=== PATIENT | female | born 1950 | race Caucasian/White ===

== ENCOUNTER → 2019-06-10 | Outpatient (CLI) | payer BC ==
--- NOTE | 2019-06-10 16:17 | XR ---
EXAMINATION TYPE: XR lumbosacral spine min 4V DATE OF EXAM: 06/10/2019 CLINICAL HISTORY: pain COMPARISON: NONE TECHNIQUE: Frontal, lateral, and oblique images of the lumbar spine are obtained. FINDINGS: Moderate degenerative disc space narrowing L4-5 and L5-S1. Grade 1 anterolisthesis L4 and L 5 measuring 6 mm. No fracture identified. IMPRESSION: No acute fracture or dislocation is seen in the lumbar spine. .ICD 10 NO FRACTURE, INITIAL EVALUATION
== END | disposition home or self-care (01) ==
LOC: RADXRYALE 15:32
PROVIDERS: ATTEND Physician Assistant Medical
DX: M54.31 Sciatica, right side (principal)
CPT/HCPCS: 72110

== ENCOUNTER → 2021-06-27 | Outpatient (CLI) | payer BC ==
--- NOTE | 2021-06-27 11:27 | BD ---
EXAMINATION TYPE: Axial Bone Density DATE OF EXAM: 06/27/2021 COMPARISON: NONE CLINICAL HISTORY: Height: 62 IN Weight: 184 LBS FRAX RISK QUESTIONS: Family History (Parent hip fracture): YES History of Fracture in Adulthood: PATELLA FX AGE 65; TIBIA PLATEAU FX AGE 64; LT WRIST FX AGE 55; RT WRIST AGE 70 RISK FACTORS HISTORY OF: History of Wrist Fracture: YES LT WRIST AGE 55; RT WRIST AGE 70 Surgery to Wrist (right): YES AGE 70 Active: YES Diet low in dairy products/other sources of calcium: YES Postmenopausal woman: AGE 56 MEDICATIONS: Additional Medications: CALCIUM, VIT D, LIPITOR, AMLODIPINE EXAM MEASUREMENTS: Bone mineral densitometry was performed using the [employer] System. Bone mineral density as measured about the Lumbar spine is: ----- L1-L4(G/cm2): 1.069 T Score Values are as follows: ----- L2: -1.3 ----- L3: -0.9 ----- L4: 0.3 ----- L1-L4: -0.9 Bone mineral density BASELINE Bone mineral density about the R hip (g/cm2): 0.914 Bone mineral density about the L hip (g/cm2): 0.812 T Score values are as follows: -----R Neck: -0.9 -----L Neck: -1.6 -----R Total: -0.5 -----L Total: -0.7 Bone mineral density BASELINE IMPRESSION: No evidence for osteoporosis or osteopenia. NOTE: T-SCORE=SD OF THE YOUNG ADULT MEAN.
== END | disposition home or self-care (01) ==
LOC: RADBDWWP 07:15
PROVIDERS: ATTEND Family Medicine
DX: M85.89 Other specified disorders of bone density and structure, multiple sites (principal); E55.9 Vitamin D deficiency, unspecified; Z78.0 Asymptomatic menopausal state
CPT/HCPCS: 77080

== ENCOUNTER → 2021-07-11 | Outpatient (CLI) | payer BC ==
--- NOTE | 2021-07-12 12:26 | MM ---
Reason for exam: screening (asymptomatic). History: Patient is postmenopausal and had first child at age 35. Benign excisional biopsy of the left breast. Physical Findings: A clinical breast exam by your physician is recommended on an annual basis and results should be correlated with mammographic findings. MG 3D Screening Mammo W/Cad Bilateral CC and MLO view(s) were taken. No prior studies available for comparison. There are scattered fibroglandular densities. There is no discrete abnormality. ASSESSMENT: Benign, BI-RAD 2 RECOMMENDATION: Routine screening mammogram of both breasts in 1 year.
== END | disposition home or self-care (01) ==
LOC: RADMAMWWP 16:36
PROVIDERS: ATTEND Family Medicine
DX: Z12.31 Encounter for screening mammogram for malignant neoplasm of breast (principal); Z78.0 Asymptomatic menopausal state
CPT/HCPCS: 77063; 77067

== ENCOUNTER → 2024-05-21 | Outpatient (CLI) | payer BC ==
--- NOTE | 2024-05-22 14:19 | MM ---
Reason for Exam: Screening (asymptomatic). Last mammogram was performed 2 year(s) and 10 month(s) ago. Patient History: Menarche at age 14. First Full-Term at age 35. Late child-bearing (after 30). Postmenopausal. Benign Excisional Biopsy on the left side. Risk Values: Padmini 5 year model risk: 2.9%. NCI Lifetime model risk: 7.4%. Prior Study Comparison: 07/11/2021 Bilateral Screening Mammogram, [facility]. Tissue Density: There are scattered areas of fibroglandular density. Findings: Analyzed By CAD. Similar postexcisional changes left upper outer quadrant. Global asymmetry lateral subareolar left breast is unchanged. There is no suspicious group of microcalcifications or new suspicious mass in either breast. Overall Assessment: Benign, BI-RAD 2 Management: Screening Mammogram of both breasts in 1 year. . Patient should continue monthly self-breast exams. A clinical breast exam by your physician is recommended on an annual basis. This exam should not preclude additional follow-up of suspicious palpable abnormalities. Note on Padmini scores and lifetime risk: 1. A Padmini score greater than 3% is considered moderate risk. If this is the case, consider specialist referral to assess eligibility for a risk reducing agent. 2. If overall lifetime risk for the development of breast cancer is 20% or higher, the patient may qualify for future screening with alternating mammogram and breast MRI. [facility], , 05/22/2024 2:16 PM. Electronically signed and approved by: Mi Slater M.D. Radiologist
== END | disposition home or self-care (01) ==
LOC: RADMAMWWP 13:51
PROVIDERS: ATTEND Family Medicine
CPT/HCPCS: 77063; 77067

== ENCOUNTER 2024-06-25 11:06 | Observation (INO) | payer BC, MEDICARE ==
[2024-06-25] MEDS: LIDOCAINE 4% PATCH TOPICAL ONE (11:40)
--- NOTE | 2024-06-25 11:41 | ED ---
General Adult HPI - General Chief complaint: Back Pain/Injury Stated complaint: sciatica Time Seen by Provider: 06/25/24 11:14 Source: patient, EMS, RN notes reviewed Mode of arrival: EMS Limitations: no limitations - History of Present Illness Initial comments: 74-year-old female presents to the emergency department for evaluation of low back pain. Patient reports low back pain radiating down her right leg. She states it started on Sunday. Patient reports that she has a history of sciatica but states that the pain is more severe than in the past. She states that she was seen by her PCP on Sunday for the same symptoms. She was started on steroids and was provided a dose of IM steroids and anti-inflammatories. She states that she has not seen any improvement in her symptoms. She denies recent fever, chills, saddle anesthesia, loss of bowel or bladder function. - Related Data Home Medications Medication Instructions Recorded Confirmed Atorvastatin [Lipitor] 20 mg PO HS 06/25/24 06/25/24 amLODIPine [Norvasc] 5 mg PO DAILY 06/25/24 06/25/24 methylPREDNISolone Dose Pack 4 mg PO DIRECTED 06/25/24 06/25/24 [Medrol Dose Pack] Previous Rx's Medication Instructions Recorded Acetaminophen Tab [Tylenol] 650 mg PO Q6HR PRN tab 06/27/24 Gabapentin [Neurontin] 300 mg PO TID #90 cap 06/27/24 Allergies Allergy/AdvReac Type Severity Reaction Status Date / Time Penicillins Allergy Rash/Hives Verified 06/25/24 16:43 Review of Systems ROS Statement: Those systems with pertinent positive or pertinent negative responses have been documented in the HPI. ROS Other: All systems not noted in ROS Statement are negative. Past Medical History Past Medical History: Hyperlipidemia, Hypertension Additional Past Medical History / Comment(s): diverticulosis History of Any Multi-Drug Resistant Organisms: None Reported Past Surgical History: Section, Tonsillectomy, Tubal Ligation Additional Past Surgical History / Comment(s): LEFT WRIST Past Anesthesia/Blood Transfusion Reactions: Motion Sickness, Postoperative Nausea & Vomiting (PONV) Past Psychological History: No Psychological Hx Reported Smoking Status: Former smoker Past Alcohol Use History: Occasional Past Drug Use History: None Reported - Past Family History Mother Family Medical History: No Reported History General Exam Limitations: no limitations General appearance: alert, in no apparent distress Head exam: Present: atraumatic, normocephalic, normal inspection Eye exam: Present: normal appearance, PERRL, EOMI. Absent: scleral icterus, conjunctival injection, periorbital swelling ENT exam: Present: normal exam, mucous membranes moist Respiratory exam: Present: normal lung sounds bilaterally. Absent: respiratory distress, wheezes, rales, rhonchi, stridor Cardiovascular Exam: Present: regular rate, normal rhythm, normal heart sounds. Absent: systolic murmur, diastolic murmur, rubs, gallop, clicks Extremities exam: Present: normal inspection, full ROM, normal capillary refill, other (DP and PT pulses 2+). Absent: tenderness, pedal edema, joint swelling, calf tenderness Back exam: Present: full ROM, tenderness Neurological exam: Present: alert, oriented X3 Psychiatric exam: Present: normal affect, normal mood Skin exam: Present: warm, dry, intact, normal color. Absent: rash Course Vital Signs 06/25/24 06/25/24 06/25/24 11:19 13:14 17:00 Temperature 99.2 F 98.2 F 98.2 F Pulse Rate 74 66 68 Respiratory 16 18 18 Rate Blood Pressure 193/72 137/74 131/76 O2 Sat by Pulse 96 97 97 Oximetry Medical Decision Making - Medical Decision Making Was pt. sent in by a medical professional or institution (ALEJANDRA Gomez, CABLEWAY OPERATOR, urgent care, hospital, or residential...) When possible be specific @ -No Did you speak to anyone other than the patient for history (EMS, parent, family, police, friend...)? What history was obtained from this source @ -No Did you review nursing and triage notes (agree or disagree)? Why? @ -I reviewed and agree with nursing and triage notes Were old charts reviewed (outside hosp., previous admission, EMS record, old EKG, old radiological studies, urgent care reports/EKG's, residential records)? Report findings @ -No old charts were reviewed Differential Diagnosis (chest pain, altered mental status, abdominal pain women, abdominal pain men, vaginal bleeding, weakness, fever, dyspnea, syncope, headache, dizziness, GI bleed, back pain, seizure, CVA, palpatations, mental health, musculoskeletal)? @ -Differential Back Pain: Strain, zoster, cauda equina syndrome, epidural abscess, vertebral osteomyelitis, discitis, fracture, subluxation, disc herniation, DJD, spinal stenosis, dissection, AAA, pancreatitis, peptic ulcer disease, pyelonephritis, kidney stone, this is not meant to be an all-inclusive list. EKG interpreted by me (3pts min.). @ -None X-rays interpreted by me (1pt min.). @ -X-ray lumbar spineGrade 1 spondylolisthesis of L4 anterior to L5, facet degenerative changes CT interpreted by me (1pt min.). @ -None done U/S interpreted by me (1pt. min.). @ -Ultrasound of the left lower extremity reveals no evidence of DVT What testing was considered but not performed or refused? (CT, X-rays, U/S, labs)? Why? @ -None What meds were considered but not given or refused? Why? @ -None Did you discuss the management of the patient with other professionals (prof peña i.e. , PA, CABLEWAY OPERATOR, lab, RT, psych nurse, case management social worker, purchase analyst, teacher, command and control officer, immigration case manager)? Give summary @ -Case discussed with Tha Beltran with [facility] who is accepting of the admission Was smoking cessation discussed for >3mins.? @ -No Was critical care preformed (if so, how long)? @ -No Were there social determinants of health that impacted care today? How? (Homelessness, low income, unemployed, alcoholism, drug addiction, transportation, low edu. Level, literacy, decrease access to med. care, long-term, rehab)? @ -No Was there de-escalation of care discussed even if they declined (Discuss DNR or withdrawal of care, Hospice)? DNR status @ -No What co-morbidities impacted this encounter? (DM, HTN, Smoking, COPD, CAD, Cancer, CVA, ARF, Chemo, Hep., AIDS, mental health diagnosis, sleep apnea, morbid obesity)? @ -None Was patient admitted / discharged? Hospital course, mention meds given and route, prescriptions, significant lab abnormalities, going to OR and other pertinent info. @ -Admitted. Patient presented to the emergency department for evaluation of back pain. X-rays obtained revealing grade 1 spondylolisthesis of L4 anterior to L5 which is stable, facet degenerative changes. Ultrasound of the left lower extremity was obtained which reveals no evidence of DVT. Laboratory studies reveal Leukocytosis with WBC of 12.9; normal coagulation studies; CMP nonactionable. Patient attempted ambulation to the bathroom but was unable to do so. Patient will be admitted for pain control and orthopedic consultation. She is understanding agreeable with this plan. [facility] with [facility] who is accepting of the admission. Case discussed with Dr. Lozano. Undiagnosed new problem with uncertain prognosis? @ -No Drug Therapy requiring intensive monitoring for toxicity (Heparin, Nitro, Insulin, Cardizem)? @ -No Were any procedures done? @ -No Diagnosis/symptom? @ -Back pain Acute, or Chronic, or Acute on Chronic? @ -Acute Uncomplicated (without systemic symptoms) or Complicated (systemic symptoms)? @ -Uncomplicated Side effects of treatment? @ -No Exacerbation, Progression, or Severe Exacerbation? @ -No Poses a threat to life or bodily function? How? (Chest pain, USA, PR, pneumonia, PE, COPD, DKA, ARF, appy, cholecystitis, CVA, Diverticulitis, Homicidal, Suicidal, threat to staff... and all critical care pts) @ -No - Lab Data Result diagrams: 06/27/24 04:34 06/25/24 15:02 Lab Results 06/25/24 06/25/24 06/25/24 Range/Units 15:02 15:02 15:02 WBC 12.9 H (3.8-10.6) k/uL RBC 4.91 (3.80-5.40) m/uL Hgb 14.6 (11.4-16.0) gm/dL Hct 45.0 (34.0-46.0) % MCV 91.6 (80.0-100.0) fL MCH 29.7 (25.0-35.0) pg MCHC 32.4 (31.0-37.0) g/dL RDW 12.8 (11.5-15.5) % Plt Count 287 (150-450) k/uL MPV 8.1 Neutrophils % 77 % Lymphocytes % 17 % Monocytes % 4 % Eosinophils % 1 % Basophils % 0 % Neutrophils # 9.9 H (1.3-7.7) k/uL Lymphocytes # 2.2 (1.0-4.8) k/uL Monocytes # 0.5 (0-1.0) k/uL Eosinophils # 0.2 (0-0.7) k/uL Basophils # 0.0 (0-0.2) k/uL ESR (0-30) mm/Hr PT 11.0 (10.0-12.5) sec INR 1.0 (<1.2) APTT 30.7 H (22.0-30.0) sec Sodium 138 (137-145) mmol/L Potassium 4.3 (3.5-5.1) mmol/L Chloride 111 H (98-107) mmol/L Carbon Dioxide 24 (22-30) mmol/L Anion Gap 3 mmol/L BUN 20 H (7-17) mg/dL Creatinine 0.58 (0.52-1.04) mg/dL Est GFR (CKD-EPI)AfAm >90 (>60 ml/min/1.73 sqM) Est GFR (CKD-EPI)NonAf >90 (>60 ml/min/1.73 sqM) Glucose 102 H (74-99) mg/dL Calcium 9.2 (8.4-10.2) mg/dL Total Bilirubin 0.5 (0.2-1.3) mg/dL AST 27 (14-36) U/L ALT 25 (4-34) U/L Alkaline Phosphatase 93 (38-126) U/L C-Reactive Protein (<1.0) mg/dL Total Protein 7.3 (6.3-8.2) g/dL Albumin 4.3 (3.5-5.0) g/dL 06/25/24 06/25/24 Range/Units 15:30 15:30 WBC (3.8-10.6) k/uL RBC (3.80-5.40) m/uL Hgb (11.4-16.0) gm/dL Hct (34.0-46.0) % MCV (80.0-100.0) fL MCH (25.0-35.0) pg MCHC (31.0-37.0) g/dL RDW (11.5-15.5) % Plt Count (150-450) k/uL MPV Neutrophils % % Lymphocytes % % Monocytes % % Eosinophils % % Basophils % % Neutrophils # (1.3-7.7) k/uL Lymphocytes # (1.0-4.8) k/uL Monocytes # (0-1.0) k/uL Eosinophils # (0-0.7) k/uL Basophils # (0-0.2) k/uL ESR 19 (0-30) mm/Hr PT (10.0-12.5) sec INR (<1.2) APTT (22.0-30.0) sec Sodium (137-145) mmol/L Potassium (3.5-5.1) mmol/L Chloride (98-107) mmol/L Carbon Dioxide (22-30) mmol/L Anion Gap mmol/L BUN (7-17) mg/dL Creatinine (0.52-1.04) mg/dL Est GFR (CKD-EPI)AfAm (>60 ml/min/1.73 sqM) Est GFR (CKD-EPI)NonAf (>60 ml/min/1.73 sqM) Glucose (74-99) mg/dL Calcium (8.4-10.2) mg/dL Total Bilirubin (0.2-1.3) mg/dL AST (14-36) U/L ALT (4-34) U/L Alkaline Phosphatase (38-126) U/L C-Reactive Protein <0.5 (<1.0) mg/dL Total Protein (6.3-8.2) g/dL Albumin (3.5-5.0) g/dL Disposition Clinical Impression: Sciatica, Unable to ambulate Disposition: ADMITTED IP TO THIS [facility] Condition: Stable Is patient prescribed a controlled substance at d/c from ED?: No
[2024-06-25] MEDS: ORPHENADRINE 30 MG/ML 2 ML VIAL IVP STA (11:44)
[2024-06-25] MEDS: KETOROLAC 15 MG/ML 1 ML VIAL IVP STA (11:45)
--- NOTE | 2024-06-25 12:58 | XR ---
EXAMINATION TYPE: XR lumbosacral spine min 4V DATE OF EXAM: 06/25/2024 12:11 PM COMPARISON: 06/10/2019 CLINICAL INDICATION: Female, 74 years old with history of pain, TECHNIQUE: 5 view(s) obtained. FINDINGS: There are 5 lumbar-type vertebral bodies. Pedicles are intact. Facet degenerative changes are present . No spondylolytic defects are evident. There is a grade 1 spondylolisthesis of L4 anteriorly on L5. Disc heights are otherwise preserved. Vertebral body heights are preserved. IMPRESSION: 1. Stable Grade 1 spondylolisthesis of L4 anterior to L5. 2. Facet degenerative changes [facility], Workstation: [facility], 06/25/2024 12:56 PM
[2024-06-25] MEDS: MORPHINE SULFATE 4 MG/ML SYRINGE IVP STA (13:17)
[2024-06-25] MEDS: HYDROmorphone 0.5 MG/0.5 ML SYRINGE IVP STA (14:23)
[2024-06-25 15:14] LABS: Basophils % (A) 0 %; Eosinophils # (A) 0.2 k/uL (0-0.7); Eosinophils % (A) 1 %; HGB 14.6 gm/dL (11.4-16.0); Lymphocytes # (A) 2.2 k/uL (1.0-4.8); Lymphocytes % (A) 17 %; MCH 29.7 pg (25.0-35.0); MCHC 32.4 g/dL (31.0-37.0); MCV 91.6 fL (80.0-100.0); Mean Platelet Volume 8.1; Monocytes # (A) 0.5 k/uL (0-1.0); Monocytes % (A) 4 %; Neutrophils # (A) 9.9 k/uL (1.3-7.7); Neutrophils % (A) 77 %; Platelet Count 287 k/uL (150-450); RBC 4.91 m/uL (3.80-5.40); RDW 12.8 % (11.5-15.5); WBC 12.9 k/uL (3.8-10.6)
[2024-06-25 15:22] LABS: Partial Thromboplastin Time 30.7 sec (22.0-30.0)
[2024-06-25 15:28] LABS: ALT 25 U/L (4-34); AST 27 U/L (14-36); African American GFR (CKD) >90 (>60 ml/min/1.73 sqM); Albumin 4.3 g/dL (3.5-5.0); Alkaline Phosphatase 93 U/L (38-126); Anion Gap 3 mmol/L; Blood Urea Nitrogen 20 mg/dL (7-17); Calcium 9.2 mg/dL (8.4-10.2); Carbon Dioxide 24 mmol/L (22-30); Chloride 111 mmol/L (98-107); Glucose 102 mg/dL (74-99); Non-African American GFR(CKD) >90 (>60 ml/min/1.73 sqM); Potassium 4.3 mmol/L (3.5-5.1); Sodium 138 mmol/L (137-145); Total Bilirubin 0.5 mg/dL (0.2-1.3); Total Protein 7.3 g/dL (6.3-8.2)
--- NOTE | 2024-06-25 16:03 | US ---
EXAMINATION TYPE: US venous doppler duplex LE RT DATE OF EXAM: 06/25/2024 2:43 PM COMPARISON: NONE CLINICAL INDICATION: Female, 74 years old with history of pain; pain. Pt has history of sciatica , Pa in TECHNIQUE: The lower extremity deep venous system is examined utilizing real time linear array sonog lucero with graded compression, color doppler sonography, and spectral doppler. SIDE PERFORMED: Right FINDINGS: VESSELS IMAGED: Common Femoral Vein Deep Femoral Vein Greater Saphenous Vein * Femoral Vein Popliteal Vein Small Saphenous Vein * Proximal Calf Veins (* superficial vessels) Right Leg: Negative for DVT, Color Doppler imaging shows patency of the vessels. Spectral waveforms are within normal limits. IMPRESSION: 1. Right lower extremity ultrasound negative for deep venous thrombosis. [facility], , 06/25/2024 4:01 PM
[2024-06-25] MEDS ORDERED: ACETAMINOPHEN TAB 325 MG TAB PO PRN (16:21)
[2024-06-25] MEDS ORDERED: HYDROmorphone 0.5 MG/0.5 ML SYRINGE IVP PRN (16:21)
[2024-06-25] MEDS ORDERED: NALOXONE 0.4 MG/ML 1 ML VIAL IV PRN (16:21)
[2024-06-25] MEDS ORDERED: IBUPROFEN 400 MG TAB PO PRN (16:21)
[2024-06-25] MEDS: HYDROmorphone 1 MG/ML 1 ML SYRINGE IVP PRN (17:29)
[2024-06-25] MEDS: ONDANSETRON 4 MG/2 ML VIAL IVP PRN (17:46)
--- NOTE | 2024-06-25 17:48 | P.HPIM ---
History of Present Illness H&P Date: 06/25/24 Patient is a 74-year-old female with hypertension, hyperlipidemia, diverticulosis, and history of sciatica who came in for severe back pain. Patient reported that since Sunday she has been having intermittent lower back pain that is sharp with an intensity at maximum 10 out of 10 that radiates to the right leg and worsens with movement. She has tried to do back exercises and stretches but they did not work. She also reported that the pain is relieved when she lies on her left side. On Saturday 06/23 she sought care with her PCP and received steroid and anti-inflammatory injections at the bilateral posterior hip area and was prescribed a Medrol Dosepak. In the next 2 days she tried to use the Medrol Dosepak but it did not relieve her pain. Today, the pain became very intense once again which led her to seek care in our ED. She noted associated numbness of her right toes up to her distal soles of the right foot. She denied changes in sensation in the saddle area, incontinence, focal weakness of the affected leg, changes in vision, changes in speech, facial asymmetry, tremors, gait changes, calf tenderness, shortness of breath, chest pain, fevers, weight loss, sweats, recent trauma, or recent sick contacts. Lumbar x-ray in the ED showed grade 1 spondylolisthesis of L4-L5. Venous Doppler ultrasound of the right leg showed negative for DVT. WBC 12.9 hemoglobin 14.6 platelet count 287 PT 11 INR 1 PTT 30.7 sodium 138 potassium 4.3 BUN 28 creatinine 0.58 glucose 102 calcium 9.2 albumin 4.3 CRP less than 0.5 alk phos 93 AST 27 ALT 25. Vitals on admission showed patient was a febrile at 99.2 Fahrenheit pulse rate 74 respiratory rate 16 blood pressure 193/72 oxygen saturation 96% on room air Review of systems: Pertinent positives and negatives as discussed in HPI, a complete review of systems was performed and all other systems are negative. Family history: No known remarkable Social history: Tobacco: Former smoker. Quit 30 years ago. Alcohol: Occasional alcohol intake Recreational drugs: None Travel: None Occupation: Retired Physical examination: Vital signs reviewed General: non toxic, no distress, Derm: no unusual rashes/lesions, warm Head: atraumatic, normocephalic, symmetric Eyes: EOMI, anicteric sclera, pupils equal round reactive to light ENT: Nose and ears atraumatic Neck: No cervical lymphadenopathy, trachea midline, supple Mouth: no lip lesion, mucus membranes moist Cardiovascular: S1S2 reg, no murmur Lungs: CTA bilateral, no rhonchi, no rales, no accessory muscle use Abdominal: soft, nondistended, nontender to palpation, no guarding Ext: muscle strength 4 out of 5 in proximal right lower extremity, 5 out of 5 in other extremities grossly, no gross muscle atrophy, no contractures, positive dorsalis pedis pulse bilateral, no edema, positive straight leg test of the right leg Neuro: CN II-XI grossly intact, no gross focal neuro deficits, decreased sensation from right toes to distal sole of the right foot Psych: Alert and oriented x 3, appropriate affect and mood Assessment/Plan: 74-year-old female with history of sciatica for evaluation of worsening back pain #. Back pain likely due to sciatica rule out other causes -Fall precautions -Norflex 30 mg IV push and lidocaine patch given at the ED -Pain control with Tylenol 650 mg p.o., Motrin 400 mg p.o. ketorolac IVP, morphine 4 mg IVP, Dilaudid IVP as needed -Lumbar x-ray in the ED showed grade 1 spondylolisthesis of L4-L5 -Venous Doppler ultrasound of the right leg showed negative for DVT -Ortho consulted -PT OT consulted -Pain management consulted #. Leukocytosis likely reactive secondary to above -WBC 12.9 -Monitor CBC Chronic conditions: #. Hypertension -Heart healthy diet -Amlodipine 5 mg p.o. daily #. Hyperlipidemia -Resume home Lipitor 20 mg p.o. nightly F: Oral intake E: None N: Heart healthy diet A: Fall precautions. Needs support to ambulate DVT ppx: Lovenox 40 mg SQ daily Dispo: The patient is admitted with an anticipated less than 2 midnight stay for evaluation of back pain CODE STATUS: Full Discussed with: Patient Anticipated discharge place: Send home Lore Bunch MD PGY-1 IM I saw and evaluated the patient during the steinberg and critical portions of this encounter, and discussed the case in detail with the resident author of this note, I agree with the Assessment and Plan, and my changes, if any, are noted below. Sciatia likely due to spondylolisthesis. Consult pain management. PT and OT consult. Fall precautions. Dictation was produced using [employer] dictation software. please excuse any grammatical, word or spelling errors. Past Medical History Past Medical History: Hyperlipidemia, Hypertension Additional Past Medical History / Comment(s): diverticulosis History of Any Multi-Drug Resistant Organisms: None Reported Past Surgical History: Section, Tonsillectomy, Tubal Ligation Additional Past Surgical History / Comment(s): LEFT WRIST Past Anesthesia/Blood Transfusion Reactions: Motion Sickness, Postoperative Nausea & Vomiting (PONV) Past Psychological History: No Psychological Hx Reported Smoking Status: Former smoker Past Alcohol Use History: Occasional Past Drug Use History: None Reported - Past Family History Mother Family Medical History: No Reported History Medications and Allergies Home Medications Medication Instructions Recorded Confirmed Type Atorvastatin [Lipitor] 20 mg PO HS 06/25/24 06/25/24 History amLODIPine [Norvasc] 5 mg PO DAILY 06/25/24 06/25/24 History methylPREDNISolone Dose Pack 4 mg PO DIRECTED 06/25/24 06/25/24 History [Medrol Dose Pack] Allergies Allergy/AdvReac Type Severity Reaction Status Date / Time Penicillins Allergy Rash/Hives Verified 06/25/24 16:43 Physical Exam Vitals: Vital Signs Temp Pulse Resp BP Pulse Ox 06/25/24 13:14 98.2 F 66 18 137/74 97 06/25/24 11:19 99.2 F 74 16 193/72 96 Intake and Output 06/25/24 06/25/24 06/25/24 06:59 14:59 22:59 Other: Weight 86.183 kg Results CBC & Chem 7: 06/25/24 15:02 06/25/24 15:02 Labs: Abnormal Lab Results - Last 24 Hours (Table) 06/25/24 06/25/24 06/25/24 Range/Units 15:02 15:02 15:02 WBC 12.9 H (3.8-10.6) k/uL Neutrophils # 9.9 H (1.3-7.7) k/uL APTT 30.7 H (22.0-30.0) sec Chloride 111 H (98-107) mmol/L BUN 20 H (7-17) mg/dL Glucose 102 H (74-99) mg/dL
[2024-06-25] MEDS ORDERED: METOCLOPRAMIDE 5 MG/ML 2 ML VIAL IVP PRN (20:29)
[2024-06-25] MEDS: ATORVASTATIN 20 MG TAB PO SCH (22:18)
[2024-06-26] MEDS: KETOROLAC 15 MG/ML 1 ML VIAL IVP PRN (06:51)
[2024-06-26] MEDS: amLODIPine 5 MG TAB PO SCH (08:36)
[2024-06-26] MEDS: ENOXAPARIN 40 MG/0.4 ML SYRINGE SQ SCH (08:36)
--- NOTE | 2024-06-26 13:48 | P.PN ---
Subjective Progress Note Date: 06/26/24 Patient is a 74-year-old female with hypertension, hyperlipidemia, diverticulosis, and history of sciatica who came in for severe back pain. Patient reported that since Sunday she has been having intermittent lower back pain that is sharp with an intensity at maximum 10 out of 10 that radiates to the right leg and worsens with movement. She has tried to do back exercises and stretches but they did not work. She also reported that the pain is relieved when she lies on her left side. On Saturday 06/23 she sought care with her PCP and received steroid and anti-inflammatory injections at the bilateral posterior hip area and was prescribed a Medrol Dosepak. In the next 2 days she tried to use the Medrol Dosepak but it did not relieve her pain. Today, the pain became very intense once again which led her to seek care in our ED. She noted associated numbness of her right toes up to her distal soles of the right foot. She denied changes in sensation in the saddle area, incontinence, focal weakness of the affected leg, changes in vision, changes in speech, facial asymmetry, tremors, gait changes, calf tenderness, shortness of breath, chest pain, fevers, weight loss, sweats, recent trauma, or recent sick contacts. Lumbar x-ray in the ED showed grade 1 spondylolisthesis of L4-L5. Venous Doppler ultrasound of the right leg showed negative for DVT. WBC 12.9 hemoglobin 14.6 platelet count 287 PT 11 INR 1 PTT 30.7 sodium 138 potassium 4.3 BUN 28 creatinine 0.58 glucose 102 calcium 9.2 albumin 4.3 CRP less than 0.5 alk phos 93 AST 27 ALT 25. Vitals on admission showed patient was a febrile at 99.2 Fahrenheit pulse rate 74 respiratory rate 16 blood pressure 193/72 oxygen saturation 96% on room air 06/26/2024 patient seen and examined at bedside. Patient reported her pain has had improved control compared to admission. Patient reported nausea and vomiting overnight but was relieved with medication. Review of systems: Pertinent positives and negatives as discussed in HPI, a complete review of systems was performed and all other systems are negative. Pertinent imaging and labs reviewed. Physical examination: Vital signs reviewed General: non toxic, no distress, appears at stated age Derm: no unusual rashes/lesions, warm Head: atraumatic, normocephalic, symmetric Eyes: EOMI, anicteric sclera, pupils equal round reactive to light ENT: Nose and ears atraumatic Neck: No cervical lymphadenopathy, trachea midline, supple Mouth: no lip lesion, mucus membranes moist Cardiovascular: S1S2 reg, no murmur Lungs: CTA bilateral, no rhonchi, no rales, no accessory muscle use Abdominal: soft, nontender to palpation, no guarding Ext:muscle strength 4 out of 5 in proximal right lower extremity, 5 out of 5 in other extremities grossly, no gross muscle atrophy, no contractures, positive dorsalis pedis pulse bilateral, no edema, positive straight leg test of the right leg Neuro: CN II-XI grossly intact, no gross focal neuro deficits, decreased sensation from right toes to distal sole of the right foot Psych: Alert and oriented x3, appropriate affect and mood Assessment/Plan: #. Sciatica secondary to lumbar spondylolisthesis -Fall precautions -Norflex 30 mg IV push and lidocaine patch given at the ED -Pain control with Tylenol 650 mg p.o., Motrin 400 mg p.o. ketorolac IVP, morphine 4 mg IVP, Dilaudid IVP as needed -Zofran and Reglan as needed for nausea and vomiting -Ortho consulted. MRI lumbar spine with and without contrast ordered -PT OT consulted -Pain management consulted #. Leukocytosis likely reactive secondary to above -Monitor CBC Chronic conditions: #. Hypertension -Heart healthy diet -Amlodipine 5 mg p.o. daily #. Hyperlipidemia -Resume home Lipitor 20 mg p.o. nightly F: Oral intake E: None N: Heart healthy diet A: Fall precautions. Needs support to ambulate DVT ppx: Lovenox 40 mg SQ daily Lore Bunch MD PGY-1/Linen Room Custodian Dictation was produced using [employer] dictation software. please excuse any grammatical, word or spelling errors. I saw and evaluated the patient during the steinberg and critical portions of this encounter, and discussed the case in detail with the resident author of this note, I agree with the Assessment and Plan, and my changes, if any, are noted below. Plans for MRI L spine. Gabapentin + Decadron added. Orthospine and Pain management on board. PT and OT consulted. Patient is pending clinical improvement. Objective - Vital Signs Vital signs: Vital Signs Temp 98.0 F 12/05/24 07:13 Pulse 59 L 06/26/24 07:13 Resp 16 06/26/24 07:13 BP 132/64 06/26/24 07:13 Pulse Ox 91 L 06/26/24 01:10 FiO2 Intake & Output 06/25/24 06/26/24 06/26/24 18:59 06:59 18:59 Output Total 50 Balance -50 Weight 86.183 kg Output: Oral Regurgitation 50 Other: Voiding Method Toilet # Voids 1 - Labs CBC & Chem 7: 06/25/24 15:02 06/25/24 15:02 Labs: Abnormal Lab Results - Last 24 Hours (Table) 06/25/24 06/25/24 06/25/24 Range/Units 15:02 15:02 15:02 WBC 12.9 H (3.8-10.6) k/uL Neutrophils # 9.9 H (1.3-7.7) k/uL APTT 30.7 H (22.0-30.0) sec Chloride 111 H (98-107) mmol/L BUN 20 H (7-17) mg/dL Glucose 102 H (74-99) mg/dL
--- NOTE | 2024-06-26 13:53 | P.PAINPG ---
Objective - Vital Signs Vital signs: Vital Signs Temp 98.0 F 06/26/24 07:13 Pulse 59 L 06/26/24 07:13 Resp 16 06/26/24 07:13 BP 132/64 06/26/24 07:13 Pulse Ox 91 L 06/26/24 01:10 FiO2 Intake & Output 06/25/24 06/26/24 06/26/24 18:59 06:59 18:59 Output Total 50 Balance -50 Weight 86.183 kg Output: Oral Regurgitation 50 Other: Voiding Method Toilet # Voids 1 - Labs CBC & Chem 7: 06/25/24 15:02 06/25/24 15:02 Labs: Abnormal Lab Results - Last 24 Hours (Table) 06/25/24 06/25/24 06/25/24 Range/Units 15:02 15:02 15:02 WBC 12.9 H (3.8-10.6) k/uL Neutrophils # 9.9 H (1.3-7.7) k/uL APTT 30.7 H (22.0-30.0) sec Chloride 111 H (98-107) mmol/L BUN 20 H (7-17) mg/dL Glucose 102 H (74-99) mg/dL PQRS Measure Charge Sheet Comment: HISTORY OF PRESENT ILLNESS: A 74 yr old inpatient female as a referral from Dr Lopez presents today w severe acute LBP secondary to radiculopathy, spondylosis and facet arthropathy without myelopathy for evaluation. Pt states pain level is provoked at 8 /10 in intensity, constant, localized in the mid to lower lumbar spine, predominantly axial, achy in character w occasional shooting pain towards the R knee> L. Pain is provoked by lifting, bending. She had PT in 2019 but her pain was not this bad either. Pain is alleviated by medications (Dilaudid 1mg IVP q3h prn, Ketorolac 15mg IVP q6h prn, Ibu 400mg q8h prn, Tyl 50mg q6h prn, Lidoderm 4% QD), repositioning and rest . PMH: OA, Hyperlipidemia, HTN, Civerticulosis PSH: Section, Tonsillectomy, Tubal Ligation, R Heel Spur Surgery, R Wrist Plate SH: Quit tobacco 30 yrs ago, Occ ETOH use, No illicit drug use FH: Mo- No Reported History All: See list Meds: See list REVIEW OF ORGAN SYSTEMS: CONSTITUTIONAL: No fevers or chills. No recent weight loss. NEUROLOGICAL: + numbness and tingling along the distal extremities. No seizure disorders or headaches. MUSCULOSKELETAL: + pain PSYCHIATRIC: Denies current depression or suicidal thoughts. Physical Examinations : Constitutional : Cooperative , not in acute distress . Neurologic : Cranial nerve II to XII intact. No focal neurological deficits. Psychiatric : alert & oriented x 3. Matching mood & appropriate affect. Judgment & insight intact. Musculoskeletal : Cervical Spine Motor strength in the deltoid and biceps: Normal right side. Normal Left side Motor strength biceps and the wrist extensors: Normal right side . Normal left side Motor strength in the triceps muscle: Normal right side. Normal left side Deep tendon reflexes: Normal at the biceps. Normal at Brachioradialis. Normal at triceps Vertebral body tenderness to deep palpation over Cervical facet loading test: positive bilaterally Spurling test: positive bilaterally Neck distraction test: positive bilaterally Benjamin sign: positive bilaterally Lumbar spine Motor strength lower extremities ,thigh and legs 5/5 Right side , 5/5 Left side Deep tendon reflexes : Normal Knee Jerk. Normal Ankle Jerk Vertebral body tenderness over L4 Otto Test positive BL L4-L5 Lumbar facet Loading Test: positive Right / positive Left Range of motion of the lumbar spine F lexion 30 degrees, extension 10 degrees Straight Leg Raise test: Left/ Right positive at degrees Ernst test: positive right / positive left. Severe tenderness over the Sacroiliac joint on the Right / Left sides Gaenslen test: positive bilaterally Seated flexion test: positive bilaterally. Sacral spine : Severe tenderness over the Sacroiliac joint: right side / left side Range of motion: Flexion of the lumbar spine <60 degrees Range of motion: Extension of the lumbar spine <20 degrees Gaenslen's Test positive Ernst test: positive right side / left side Thigh Thrust Test Sacral Thrust Test Imaging: X ray lumbar spine from 06/25/24 reviewed MRI non contrast lumbar spine pending Assessment/ Plan : L4-L5 spondylolisthesis Recommendation of MELANIE L4-L5 #1. Risks, benefits of procedure discussed and patient verbalized understanding. Admits to anti- coagulant use or medical history of diabetes. Protocol for discontinuation/ continuation of medications raymon procedure discussed. All questions answered. I have spent greater than 30 minutes on patient care today. Dr Morillo was available by phone for the evaluation of this patient. The time was used to review the medical records including relevant urine studies and Prescription history (MAPs), review of the available imaging, evaluation and examination of the patient, coordination of care with the medical staff and if applicable referring physicians, as well as creation of the medical record - Pain Location Back Non-Pharmacological Interventions: Darkened Room, Emotional/Spiritual Support Pharmacological Interventions: Discuss Pain Med Options Pain Comment: asleep PQRS Narrative: Smoking Status Former smoker Blood Pressure [Right Arm] 132/64 Blood Pressure 131/76 Pain Intensity [Back] 3 Pain Intensity 8 Pain Scale Used Numeric (1 - 10) Scale Used Numeric (1 - 10) Home Medications: Ambulatory Orders Atorvastatin [Lipitor] 20 mg PO HS 06/25/24 amLODIPine [Norvasc] 5 mg PO DAILY 06/25/24 methylPREDNISolone Dose Pack [Medrol Dose Pack] 4 mg PO DIRECTED 06/25/24 Controlled Substance Measures - Controlled Substance Measures Is patient prescribed a controlled substance at discharge?: No
--- NOTE | 2024-06-26 13:58 | P.CNOR ---
History of Present Illness - [facility] Consult date: 06/26/24 Requesting physician: Ca Connelly Consult reason: other (low back pain) History of present illness: Patient is a 74-year-old female who presents to the emergency department yesterday for evaluation of low back pain. Orthopedics was consulted due to the low back pain. Patient was seen at bedside this morning on 4 S. lying in the left lateral recumbent position. Patient states she has had ongoing low back pain for years. Patient says recently the back pain increased to the point this past Sunday where she decided to see her primary care provider on Sunday where she received steroids and anti-inflammatory injections to the right hip area. She says she was prescribed a steroid pack. Patient states the steroid pack cannot help with her over the past few days so she decided to present to the emergency department for further care. Patient states she does ambulate in dependently at home however, since she has been in the hospital she has been using a walker to aid in ambulation due to issues in her right lower extremity. Patient states that she has not had any traumas or falls. She states most of the pain is located in the right buttocks with radiation down the backside of the right leg especially into the right calf and with some radiation into the bottom of the right foot. Patient states pain is exacerbated when she stands for long periods at times or when she is sitting down in a chair. Patient states the pain is somewhat alleviated when she lies in the left lateral recumbent position or when she flexes both knees towards her chest. Patient states oral [id number] ibuprofen and Tylenol at home has not really helped much with her symptoms. Patient says she has not received any steroid injections into her spine before and has not seen a chiropractor or had any physical therapy before for her back. Patient denies any significant weakness in the lower extremities. Patient denies any saddle anesthesia or bowel/bladder incontinence. Patient denies chest pain, fever, shortness of breath, nausea, vomiting, change in vision. Patient denies any previous orthopedic spine surgeries. Past Medical History Past Medical History: Hyperlipidemia, Hypertension Additional Past Medical History / Comment(s): diverticulosis History of Any Multi-Drug Resistant Organisms: None Reported Past Surgical History: Section, Tonsillectomy, Tubal Ligation Additional Past Surgical History / Comment(s): LEFT WRIST Past Anesthesia/Blood Transfusion Reactions: Motion Sickness, Postoperative Nausea & Vomiting (PONV) Past Psychological History: No Psychological Hx Reported Smoking Status: Former smoker Past Alcohol Use History: Occasional Past Drug Use History: None Reported - Past Family History Mother Family Medical History: No Reported History Medications and Allergies Home Medications Medication Instructions Recorded Confirmed Type Atorvastatin [Lipitor] 20 mg PO HS 06/25/24 06/25/24 History amLODIPine [Norvasc] 5 mg PO DAILY 06/25/24 06/25/24 History methylPREDNISolone Dose Pack 4 mg PO DIRECTED 06/25/24 06/25/24 History [Medrol Dose Pack] Allergies Allergy/AdvReac Type Severity Reaction Status Date / Time Penicillins Allergy Rash/Hives Verified 06/25/24 16:43 Physical Examination Inspection: Negative for any open fractures, significant erythema/ecchymosis or swelling. Patient is lying in the left lateral recumbent position for some relief Sensation: There is some generalized numbness along the right posterior calf as well as the right hamstring region. Sensation is equal, symmetric, bilateral intact throughout the rest the lower extremities on exam. Palpation: Moderate tenderness to palpation over the lower lumbar spine at midline with severe tenderness to patient over the right SI joint extending to the right buttocks region. There is some moderate tenderness with patient over the posterior thigh and extending into the posterior calf and the right lower extremity. Nontender to palpation on rest of exam. Range of motion: Patient has full range of motion throughout bilateral upper extremities and left lower extremity exam. Patient does have limited active range of motion in the right lower extremity and hip flexion/extension and knee flexion/sanction secondary to referred weakness and pain to the low back. Patient does have good range of motion right ankle dorsi/plantarflexion. Motor: 5/5 in all major motor groups in the bilateral upper extremities. 4+/5 in all major motor groups in left lower extremity. 3+5 in EHL/FHL on the right lower extremity. 4-/5 in resisted right hip flexion to extension and right knee flexion to extension 4/5 in right ankle dorsi/plantarflexion. Neurovascular: Radial pulse intact, 2+ bilaterally. DP pulses palpable bilaterally. Cap refill under 3 seconds in distal lower extremities. Special test: Positive straight leg raise test on the right lower extremity. Negative Homans bilaterally. No clonus bilaterally. Negative Benjamin bilaterally. h Results - Labs Labs: Abnormal Lab Results - Last 24 Hours (Table) 06/25/24 06/25/24 06/25/24 Range/Units 15:02 15:02 15:02 WBC 12.9 H (3.8-10.6) k/uL Neutrophils # 9.9 H (1.3-7.7) k/uL APTT 30.7 H (22.0-30.0) sec Chloride 111 H (98-107) mmol/L BUN 20 H (7-17) mg/dL Glucose 102 H (74-99) mg/dL H & H 06/25/24 Range/Units 15:02 Hgb 14.6 (11.4-16.0) gm/dL Hct 45.0 (34.0-46.0) % Coagulation 06/25/24 Range/Units 15:02 INR 1.0 (<1.2) Result Diagrams: 06/25/24 15:02 06/25/24 15:02 - Diagnostic results Hip x-ray: report reviewed Lumbar AP/lateral x-ray: report reviewed, image reviewed (X-ray of the lumbar spine has been reviewed. Negative for any fractures. Negative for any significant central canal stenosis. Positive for spondylolisthesis from L4-L5. Positive for some lumbar spondylosis and degenerative disc disease.) Assessment and Plan Assessment: 1. L4-L5 spondylolisthesis; degenerative disc disease; lumbar spondylosis; right lower extremity radiculopathy Plan: 1. L4-L5 spondylolisthesis; degenerative disc disease; lumbar spondylosis; right lower extremity radiculopathy- X-ray of the lumbar spine has been reviewed. Negative for any fractures. Negative for any significant central canal stenosis. Positive for spondylolisthesis from L4-L5. Positive for some lumbar spondylosis and degenerative disc disease. I did discuss the findings of the imaging and exam with my attending, Dr. Valdovinos. At this time due to the patient's ongoing symptoms we have ordered MRI of lumbar spine for further evaluation. We have ordered Decadron 4 mg every 4 hours scheduled. We will add gabapentin 300 mg 3 times daily. Pain medication as needed. Patient may weig ht-bear as tolerated with walker and assistance as needed. Appreciate PT/OT recommendations. We will await findings from the MRI of lumbar spine before proceeding with any potential orthopedic intervention. We will continue to follow patient during stay in hospital. 2. Appreciate medical management 3. Pain management -Toradol; Motrin; Tylenol; Reglan; gabapentin 4. DVT prophylaxis -Lovenox 5. GI prophylaxis - senna 6. PT/OT -weightbearing as tolerated walker and assistance as needed 7. Encourage incentive spirometer use 8. Appreciate consult Time with Patient: Less than 30
[2024-06-26] MEDS: DEXAMETHASONE SOD PHOSPHATE 4 MG/ML 1 ML VIAL IVP SCH (14:13)
[2024-06-26] MEDS: GABAPENTIN 300 MG CAP PO SCH (17:32)
[2024-06-27] MEDS: SENNOSIDES 8.6 MG TAB PO SCH (08:30)
[2024-06-27 08:44] LABS: Basophils # (A) 0.02 X 10*3/uL (0.00-0.10); Basophils % (A) 0.2 %; Eosinophils # (A) 0 X 10*3/uL (0.04-0.35); Eosinophils % (A) 0 %; HCT 44.6 % (37.2-46.3); HGB 14.4 g/dL (12.0-15.0); Lymphocytes # (A) 0.95 X 10*3/uL (0.90-5.00); Lymphocytes % (A) 8.9 %; MCH 29.8 pg (27.0-32.0); MCHC 32.3 g/dL (32.0-37.0); MCV 92.1 FL (80.0-97.0); Mean Platelet Volume 11.9 FL (9.5-12.2); Monocytes # (A) 0.14 X 10*3/uL (0.20-1.00); Monocytes % (A) 1.3 %; NRBC Per 100 WBC 0 X 10*3/uL (0.00-0.01); Neutrophils # (A) 9.54 X 10*3/uL (1.80-7.70); Neutrophils % (A) 89.2 %; Platelet Count 271 X 10*3/uL (140-440); RBC 4.84 X 10*6/uL (4.10-5.20); RDW 12.9 % (11.5-14.5); WBC 10.69 X 10*3/uL (4.50-10.00)
--- NOTE | 2024-06-27 11:51 | P.PN ---
Subjective Progress Note Date: 06/27/24 Principal diagnosis: L4-L5 spondylolisthesis; degenerative disc disease; lumbar spondylosis; right lower extremity radiculopathy Patient was seen at bedside this morning lying the summer and says she does note some improvement in symptoms in the right lower extremity. Patient says she has been in contact with pain management and they are planning for epidural steroid injection next week. Patient says she is planning on getting her MRI this afternoon. Patient denies any other issues at this time. Objective - Vital Signs Vital signs: Vital Signs Temp 98.6 F 06/27/24 07:36 Pulse 85 06/27/24 07:36 Resp 18 06/27/24 07:36 BP 153/92 06/27/24 07:36 Pulse Ox 92 L 06/27/24 07:36 FiO2 Intake & Output 06/26/24 06/27/24 06/27/24 18:59 06:59 18:59 Other: # Voids 5 1 # Bowel Movements 1 - Exam Inspection: Negative for any open fractures, significant erythema/ecchymosis or swelling. Patient is lying in the left lateral recumbent position for some relief Sensation: There is some generalized numbness along the right posterior calf as well as the right hamstring region. Sensation is equal, symmetric, bilateral intact throughout the rest the lower extremities on exam. Palpation: Moderate tenderness to palpation over the lower lumbar spine at midline with severe tenderness to patient over the right SI joint extending to the right buttocks region. There is some moderate tenderness with patient over the posterior thigh and extending into the posterior calf and the right lower extremity. Nontender to palpation on rest of exam. Range of motion: Patient has full range of motion throughout bilateral upper extremities and left lower extremity exam. Patient does have limited active range of motion in the right lower extremity and hip flexion/extension and knee flexion/sanction secondary to referred weakness and pain to the low back. Patient does have good range of motion right ankle dorsi/plantarflexion. Motor: 5/5 in all major motor groups in the bilateral upper extremities. 4+/5 in all major motor groups in left lower extremity. 3+5 in EHL/FHL on the right lower extremity. 4-/5 in resisted right hip flexion to extension and right knee flexion to extension 4/5 in right ankle dorsi/plantarflexion. Neurovascular: Radial pulse intact, 2+ bilaterally. DP pulses palpable bilater ally. Cap refill under 3 seconds in distal lower extremities. Special test: Positive straight leg raise test on the right lower extremity. Negative Homans bilaterally. No clonus bilaterally. Negative Benjamin bilaterally. - Labs CBC & Chem 7: 06/27/24 04:34 06/25/24 15:02 Labs: Abnormal Lab Results - Last 24 Hours (Table) 06/27/24 Range/Units 04:34 WBC 10.69 H (4.50-10.00) X 10*3/uL Neutrophils # 9.54 H (1.80-7.70) X 10*3/uL Monocytes # 0.14 L (0.20-1.00) X 10*3/uL Eosinophils # 0 L (0.04-0.35) X 10*3/uL Assessment and Plan Assessment: 1. L4-L5 spondylolisthesis; degenerative disc disease; lumbar spondylosis; right lower extremity radiculopathy Plan: 1. L4-L5 spondylolisthesis; degenerative disc disease; lumbar spondylosis; right lower extremity radiculopathy- X-ray of the lumbar spine has been reviewed. Negative for any fractures. Negative for any significant central canal stenosis. Positive for spondylolisthesis from L4-L5. Positive for some lumbar spondylosis and degenerative disc disease. I did discuss the findings of the imaging and exam with my attending, Dr. Valdovinos. At this time due to the patient's ongoing symptoms we have ordered MRI of lumbar spine for further evaluation. MRI lumbar spine scheduled for this afternoon. Continue Decadron 4 mg every 4 hours scheduled. gabapentin 300 mg 3 times daily. Pain medication as needed. Patient may weight-bear as tolerated with walker and assistance as needed. Pain management is planning for L4-5 epidural steroid injection next Sunday in the outpatient setting. From an orthopedic standpoint once MRI lumbar spine is performed later today, patient is stable for discharge from orthopedic standpoint. We do recommend patient to follow-up in the outpatient setting with Dr. Valdovinos in the next couple weeks for continued care. Or thopedics is signing off at this time. Please do not hesitate to contact us for any further questions. 2. Appreciate medical management 3. Pain management -Toradol; Motrin; Tylenol; Reglan; gabapentin 4. DVT prophylaxis -Lovenox 5. GI prophylaxis - senna 6. PT/OT -weightbearing as tolerated walker and assistance as needed 7. Encourage incentive spirometer use Time with Patient: Less than 30
[2024-06-27 14:13] VITALS: BP 144/73; PULSE 100; RESP 19; TEMP 98
--- NOTE | 2024-06-27 14:41 | P.PN ---
Subjective Progress Note Date: 06/27/24 Patient is a 74-year-old female with hypertension, hyperlipidemia, diverticulosis, and history of sciatica who came in for severe back pain. Patient reported that since Sunday she has been having intermittent lower back pain that is sharp with an intensity at maximum 10 out of 10 that radiates to the right leg and worsens with movement. She has tried to do back exercises and stretches but they did not work. She also reported that the pain is relieved when she lies on her left side. On Saturday 06/23 she sought care with her PCP and received steroid and anti-inflammatory injections at the bilateral posterior hip area and was prescribed a Medrol Dosepak. In the next 2 days she tried to use the Medrol Dosepak but it did not relieve her pain. Today, the pain became very intense once again which led her to seek care in our ED. She noted associated numbness of her right toes up to her distal soles of the right foot. She denied changes in sensation in the saddle area, incontinence, focal weakness of the affected leg, changes in vision, changes in speech, facial asymmetry, tremors, gait changes, calf tenderness, shortness of breath, chest pain, fevers, weight loss, sweats, recent trauma, or recent sick contacts. Lumbar x-ray in the ED showed grade 1 spondylolisthesis of L4-L5. Venous Doppler ultrasound of the right leg showed negative for DVT. WBC 12.9 hemoglobin 14.6 platelet count 287 PT 11 INR 1 PTT 30.7 sodium 138 potassium 4.3 BUN 28 creatinine 0.58 glucose 102 calcium 9.2 albumin 4.3 CRP less than 0.5 alk phos 93 AST 27 ALT 25. Vitals on admission showed patient was a febrile at 99.2 Fahrenheit pulse rate 74 respiratory rate 16 blood pressure 193/72 oxygen saturation 96% on room air 06/26/2024 patient seen and examined at bedside. Patient reported her pain has had improved control compared to admission. Patient reported nausea and vomiting overnight but was relieved with medication. 06/27/2024 patient seen and examined at bedside. No new complaints overnight. Ab le to ambulate on her own. No acute events overnight. WBC 10.6 hemoglobin 14.4 platelet count 271,000 Review of systems: Pertinent positives and negatives as discussed in HPI, a complete review of s ystems was performed and all other systems are negative. Pertinent imaging and labs reviewed. Physical examination: Vital signs reviewed General: non toxic, no distress, appears at stated age Derm: no unusual rashes/lesions, warm Head: atraumatic, normocephalic, symmetric Eyes: EOMI, anicteric sclera, pupils equal round reactive to light ENT: Nose and ears atraumatic Neck: No cervical lymphadenopathy, trachea midline, supple Mouth: no lip lesion, mucus membranes moist Cardiovascular: S1S2 reg, no murmur Lungs: CTA bilateral, no rhonchi, no rales, no accessory muscle use Abdominal: soft, nontender to palpation, no guarding Ext:muscle strength 4 out of 5 in proximal right lower extremity, 5 out of 5 in other extremities grossly, no gross muscle atrophy, no contractures, positive dorsalis pedis pulse bilateral, no edema Neuro: CN II-XI grossly intact, no gross focal neuro deficits, decreased sensation from right toes to distal sole of the right foot Psych: Alert and oriented x3, appropriate affect and mood Assessment/Plan: #. Sciatica secondary to lumbar spondylolisthesis, improved -Fall precautions -Norflex 30 mg IV push and lidocaine patch given at the ED -Pain control with Tylenol 650 mg p.o., Motrin 400 mg p.o. ketorolac IVP, morphine 4 mg IVP, Dilaudid IVP as needed -Zofran and Reglan as needed for nausea and vomiting -Ortho consulted. Gabapentin and decadron ordered. No further management lin mmended pending MRI spine. -MRI lumbar spine with and without contrast pending -PT OT consulted. Can self ambulate with walker. -Pain management consulted #. Leukocytosis likely reactive secondary to above, improving -Monitor CBC Chronic conditions: #. Hypertension -Heart healthy diet -Amlodipine 5 mg p.o. daily #. Hyperlipidemia -Resume home Lipitor 20 mg p.o. nightly F: Oral intake E: None N: Heart healthy diet A: Self ambulate DVT ppx: Lovenox 40 mg SQ daily Lore Bunch MD PGY-1/[employer] Dictation was produced using [employer] dictation software. please excuse any grammatical, word or spelling errors. I saw and evaluated the patient during the steinberg and critical portions of this e ncounter, and discussed the case in detail with the resident author of this note, I agree with the Assessment and Plan, and my changes, if any, are noted below. Pain much better. Stable for discharge but MRI postponed until tomorrow. Likely DC tomorrow. Objective - Vital Signs Vital signs: Vital Signs Temp 98.0 F 06/27/24 13:36 Pulse 100 06/27/24 13:36 Resp 19 06/27/24 13:36 BP 144/73 06/27/24 13:36 Pulse Ox 93 L 06/27/24 13:36 FiO2 Intake & Output 06/26/24 06/27/24 06/27/24 18:59 06:59 18:59 Other: # Voids 5 1 1 # Bowel Movements 1 - Labs CBC & Chem 7: 06/27/24 04:34 06/25/24 15:02 Labs: Abnormal Lab Results - Last 24 Hours (Table) 06/27/24 Range/Units 04:34 WBC 10.69 H (4.50-10.00) X 10*3/uL Neutrophils # 9.54 H (1.80-7.70) X 10*3/uL Monocytes # 0.14 L (0.20-1.00) X 10*3/uL Eosinophils # 0 L (0.04-0.35) X 10*3/uL
--- NOTE | 2024-06-27 17:17 | MR ---
EXAMINATION TYPE: MR lumbar spine wo/w con DATE OF EXAM: 06/27/2024 5:07 PM COMPARISON: None. CLINICAL INDICATION: Female, 74 years old with history of pain, TECHNIQUE: Multi planar, multi sequence imaging was performed utilizing: T1-weighted, T2-weighted, a nd turbo inversion recovery imaging of the lumbar spine. IV Contrast: 8.5 mL Gadobutrol (None, if empty) FINDINGS: Alignment: The lumbar vertebral bodies have preserved heights with grade 1 anterolisthesis of L4 on L 5. Cord: The conus medullaris and the distal spinal cord appear unremarkable with regards to their signa l intensity and morphology. No abnormal postcontrast enhancement. Bones/Discs: Mild degeneration changes throughout the spine with osteophyte formation and facet joint arthropathy. Intervertebral disc signal is maintained. No abnormal inversion recovery signal to sugg est bony edema. No abnormal postcontrast enhancement. T12-L1: No evidence of significant spinal canal stenosis or neural foraminal stenosis. L1-L2: No evidence of significant spinal canal stenosis or neural foraminal stenosis. L2-L3: No evidence of significant spinal canal stenosis or neural foraminal stenosis. L3-L4: No evidence of significant spinal canal stenosis or neural foraminal stenosis. L4-L5: Disc uncovering from grade 1 anterolisthesis and facet joint arthropathy with mild to moderate spinal canal stenosis and mild bilateral neural foraminal stenosis. L5-S1: The disc has a rounded posterior morphology without significant spinal canal stenosis. Facet j oint arthropathy with mild to moderate bilateral neural foraminal stenosis. No significant spinal canal or neural foraminal stenosis in the remainder of the visualized levels. Other findings: None. IMPRESSION: 1. No definitive evidence of disc herniation or significant spinal canal stenosis. No abnormal postc ontrast enhancement. 2. Mild disc degeneration with associated osteoarthritic changes. 3. Grade 1 anterolisthesis of L4 and L5 without spondylolysis. [facility], , 06/27/2024 5:14 PM
--- NOTE | 2024-06-27 17:38 | P.DS ---
Providers Date of admission: 06/25/24 16:40 Attending physician: Katya Lopez MD Consults: 06/25/24 16:21 Consult Physician Routine Consulting Provider: Jose D Valdovinos Consult Reason/Comments: back pain Do you want consulting provider notified?: Yes Primary care physician: [facility] Course: Hospital Course: Patient is a 74-year-old female with hypertension, hyperlipidemia, di verticulosis, and history of sciatica who came in for severe back pain. Lumbar x-ray in the ED showed grade 1 spondylolisthesis of L4-L5. Venous Doppler ultrasound of the right leg showed negative for DVT. WBC 12.9 hemoglobin 14.6 platelet count 287 PT 11 INR 1 PTT 30.7 sodium 138 potassium 4.3 BUN 28 creatinine 0.58 glucose 102 calcium 9.2 albumin 4.3 CRP less than 0.5 alk phos 93 AST 27 ALT 25. Vitals on admission showed patient was a febrile at 99.2 Fahrenheit pulse rate 74 respiratory rate 16 blood pressure 193/72 oxygen saturation 96% on room air Patient was evaluated for severe back pain likely due to sciatica. Ortho consulted, PT OT consulting, pain management consulted, pain control with Tylenol Motrin ketorolac and Dilaudid and Norflex provided, and placed on fall precautions. Ortho ordered MRI of lumbar spine and showed no definitive evidence of disc herniation or spinal canal stenosis, mild disc generation with associated osteoarthritic changes, and grade 1 anterolisthesis of L4 and L5 without spondylosis. Gabapentin and Decadron added to medical management and patient symptoms improved. No new complications occurred during hospital stay. Patient is discharged today prescribed with gabapentin 300 mg p.o. 3 times daily and advised to follow-up with pain management for epidural steroid injection, orthopedic surgery, and PCP on outpatient basis. Final Diagnosis: #. Sciatica secondary to lumbar spondylolisthesis, improved #. Leukocytosis likely reactive secondary to above, improved #. Hypertension #. Hyperlipidemia Physical examination: Vital signs reviewed General: non toxic, no distress, appears at stated age Derm: no unusual rashes/lesions, warm Head: atraumatic, normocephalic, symmetric Eyes: EOMI, anicteric sclera, pupils equal round reactive to light ENT: Nose and ears atraumatic Neck: No cervical lymphadenopathy, trachea midline, supple Mouth: no lip lesion, mucus membranes moist Cardiovascular: S1S2 reg, no murmur Lungs: CTA bilateral, no rhonchi, no rales, no accessory muscle use Abdominal: soft, nontender to palpation, no guarding Ext:muscle strength 5 out of 5 in other extremities grossly, no gross muscle atrophy, no contractures, positive dorsalis pedis pulse bilateral, no edema Neuro: CN II-XI grossly intact, no gross focal neuro deficits, improved sensation from right toes to distal sole of the right foot Psych: Alert and oriented x3, appropriate affect and mood Patient Condition at Discharge: Stable Plan - Discharge Summary Discharge Rx Participant: Yes New Discharge Prescriptions: New Gabapentin [Neurontin] 300 mg PO TID #90 cap Acetaminophen Tab [Tylenol] 650 mg PO Q6HR PRN tab PRN Reason: Mild Pain Or Fever > 100.5 Continue methylPREDNISolone Dose Pack [Medrol Dose Pack] 4 mg PO DIRECTED amLODIPine [Norvasc] 5 mg PO DAILY Atorvastatin [Lipitor] 20 mg PO HS Discharge Medication List Atorvastatin [Lipitor] 20 mg PO HS 06/25/24 [History] amLODIPine [Norvasc] 5 mg PO DAILY 06/25/24 [History] methylPREDNISolone Dose Pack [Medrol Dose Pack] 4 mg PO DIRECTED 06/25/24 [History] Acetaminophen Tab [Tylenol] 650 mg PO Q6HR PRN tab 06/27/24 [Rx] Gabapentin [Neurontin] 300 mg PO TID #90 cap 06/27/24 [Rx] Follow up Appointment(s)/Referral(s): Petra Morillo MD [STAFF PHYSICIAN] - 1 Week Jose D Valdovinos DO [Doctor of Osteopathic Medicine] - 1 Week Cash Edgar DO [Primary Care Provider] - 1-2 days Discharge Disposition: HOME SELF-CARE
== END 2024-06-27 18:01 | disposition home or self-care (01) ==
LOC: EC 11:06 → 4SSUR 16:40
PROVIDERS: ADMIT Family Medicine; ATTEND Family Medicine
DX: M43.16 Spondylolisthesis, lumbar region (principal); M51.16 Intervertebral disc disorders with radiculopathy, lumbar region; D72.829 Elevated white blood cell count, unspecified; R11.2 Nausea with vomiting, unspecified; I10 Essential (primary) hypertension; E78.5 Hyperlipidemia, unspecified; Z79.899 Other long term (current) drug therapy; Z87.891 Personal history of nicotine dependence; Z88.0 Allergy status to penicillin
CPT/HCPCS: 96376 ×3; 96372 ×2; 96375 ×3; 96374; 99285; 36415; 97116; 97161; 97530; 97165; 80053; 85652; 85025 ×2; 85610; 85730; 86140; 72110; 93971; 72158; G0378 ×3; J2270; J1100 ×2; J2360; J2405; J1650 ×2; J1171 ×2; J1885 ×2; A9585

== ENCOUNTER → 2024-07-14 | Outpatient (CLI) | payer BC, MEDICARE ==
[2024-07-14 09:42] VITALS: BP 148/82; PULSE 61; RESP 17; TEMP 97.3
--- NOTE | 2024-07-14 14:53 | P.PAINPG ---
PQRS Measure Charge Sheet Comment: HISTORY OF PRESENT ILLNESS: A 74 yr old female presents today w severe acute LBP secondary to radiculopathy, spondylosis and facet arthropathy without myelopathy for evaluation. Pt states pain level is provoked at 8 /10 in intensity, constant, localized in the R lower lumbar spine, predominantly axial, achy in character w occasional shooting pain towards the RLE. Pain is provoked by lifting, bending. Pain is alleviated by use of a cane for ambulatory assistance, medications, manual massage, repositioning and rest . Oswestry axial pain score of 31. Interventional procedures include Medications include Tyl, Ibu REVIEW OF ORGAN SYSTEMS: CONSTITUTIONAL: No fevers or chills. No recent weight loss. NEUROLOGICAL: + numbness and tingling along the distal extremities. No seizure disorders or headaches. MUSCULOSKELETAL: + pain PSYCHIATRIC: Denies current depression or suicidal thoughts. Physical Examinations : Constitutional : Cooperative , not in acute distress . Neurologic : Cranial nerve II to XII intact. No focal neurological deficits. Psychiatric : alert & oriented x 3. Matching mood & appropriate affect. Judgment & insight intact. Musculoskeletal : Cervical Spine Motor strength in the deltoid and biceps: Normal right side. Normal Left side Motor strength biceps and the wrist extensors: Normal right side . Normal left side Motor strength in the triceps muscle: Normal right side. Normal left side Deep tendon reflexes: Normal at the biceps. Normal at Brachioradialis. Normal at triceps Vertebral body tenderness to deep palpation over Cervical facet loading test: positive bilaterally Spurling test: positive bilaterally Neck distraction test: positive bilaterally Benjamin sign: positive bilaterally Lumbar spine Motor strength lower extremities ,thigh and legs 5/5 Right side , 5/5 Left side Deep tendon reflexes : Normal Knee Jerk. Normal Ankle Jerk Vertebral body tenderness over L4 Otto Test positive BL L4-L5 Lumbar facet Loading Test: positive Right / positive Left Range of motion of the lumbar spine Flexion 30 degrees, extension 10 degrees Straight Leg Raise test: Left/ Right positive at degrees Ernst test: positive right / positive left. Severe tenderness over the Sacroiliac joint on the Right / Left sides Gaenslen test: positive bilaterally Seated flexion test: positive bilaterally. Sacral spine : Severe tenderness over the Sacroiliac joint: right side / left side Range of motion: Flexion of the lumbar spine <60 degrees Range of motion: Extension of the lumbar spine <20 degrees Gaenslen's Test positive Ernst test: positive right side / left side Thigh Thrust Test Sacral Thrust Test Imaging: X ray lumbar spine from 06/25/24 reviewed MRI non contrast lumbar spine from 06/27/24 reviewed Assessment/ Plan : L4-L5 anterolisthesis, L4-S1 radiculopathy Recommendation of PT focused on lumbar traction M54.16. Would benefit from MELANIE L4-L5 #1. All questions answered. I have spent greater than 30 minutes on patient care today. Dr Morillo was available by phone for the evaluation of this patient. The time was used to review the medical records including relevant urine studies and Prescription history (MAPs), review of the available imaging, evaluation and examination of the patient, coordination of care with the medical staff and if applicable refe rring physicians, as well as creation of the medical record PQRS Narrative: Smoking Status Former smoker Home Medications: Ambulatory Orders Atorvastatin [Lipitor] 20 mg PO HS 06/25/24 amLODIPine [Norvasc] 5 mg PO DAILY 06/25/24 methylPREDNISolone Dose Pack [Medrol Dose Pack] 4 mg PO DIRECTED 06/25/24 Acetaminophen Tab [Tylenol] 650 mg PO Q6HR PRN tab 06/27/24 Gabapentin [Neurontin] 300 mg PO TID #90 cap 06/27/24 Controlled Substance Measures - Controlled Substance Measures Is patient prescribed a controlled substance at discharge?: No
== END ==
LOC: PNWHC3 09:03
PROVIDERS: ATTEND Specialist
DX: M43.17 Spondylolisthesis, lumbosacral region (principal); M54.17 Radiculopathy, lumbosacral region; M54.31 Sciatica, right side; M54.51 Vertebrogenic low back pain; M62.838 Other muscle spasm; Z87.891 Personal history of nicotine dependence; Z88.0 Allergy status to penicillin
CPT/HCPCS: 99202; 99211

== ENCOUNTER → 2024-08-25 | Outpatient (CLI) | payer MEDICARE, BC ==
[2024-08-25 10:11] VITALS: BP 166/72; PULSE 72; RESP 16; TEMP 97.3
--- NOTE | 2024-08-25 16:16 | P.PAINPG ---
PQRS Measure Charge Sheet Comment: HISTORY OF PRESENT ILLNESS: A 74 yr old female presents today w severe acute LBP secondary to radiculopathy, spondylosis and facet arthropathy without myelopathy for evaluation. Pt states pain level is provoked at 7 /10 in intensity, constant, localized in the R lower lumbar spine, predominantly axial, achy in character w occasional shooting pain towards the RLE. Pain is provoked by lifting, bending. Pain is alleviated by PT x 4 wks which she is currently in, physician guided stretches daily since Aug 11, use of a cane for ambulatory assistance, medications, manual massage, repositioning and rest . Interventional procedures include Medications include Tyl, Ibu REVIEW OF ORGAN SYSTEMS: CONSTITUTIONAL: No fevers or chills. No recent weight loss. NEUROLOGICAL: + numbness and tingling along the distal extremities. No seizure disorders or headaches. MUSCULOSKELETAL: + pain PSYCHIATRIC: Denies current depression or suicidal thoughts. Physical Examinations : Constitutional : Cooperative , not in acute distress . Neurologic : Cranial nerve II to XII intact. No focal neurological deficits. Psychiatric : alert & oriented x 3. Matching mood & appropriate affect. Judgment & insight intact. Musculoskeletal : Cervical Spine Motor strength in the deltoid and biceps: Normal right side. Normal Left side Motor strength biceps and the wrist extensors: Normal right side . Normal left side Motor strength in the triceps muscle: Normal right side. Normal left side Deep tendon reflexes: Normal at the biceps. Normal at Brachioradialis. Normal at triceps Vertebral body tenderness to deep palpation over Cervical facet loading test: positive bilaterally Spurling test: positive bilaterally Neck distraction test: positive bilaterally Benjamin sign: positive bilaterally Lumbar spine Motor strength lower extremities ,thigh and legs 5/5 Right side , 5/5 Left side Deep tendon reflexes : Normal Knee Jerk. Normal Ankle Jerk Vertebral body tenderness over L4 Otto Test positive BL L4-L5 Lumbar facet Loading Test: positive Right / positive Left Range of motion of the lumbar spine Flexion 30 degrees, extension 10 degrees Straight Leg Raise test: Left/ Right positive at degrees Ernst test: positive right / positive left. Severe tenderness over the Sacroiliac joint on the Right / Left sides Gaenslen test: positive bilaterally Seated flexion test: positive bilaterally. Sacral spine : Severe tenderness over the Sacroiliac joint: right side / left side Range of motion: Flexion of the lumbar spine <60 degrees Range of motion: Extension of the lumbar spine <20 degrees Gaenslen's Test positive Ernst test: positive right side / left side Thigh Thrust Test Sacral Thrust Test Imaging: X ray lumbar spine from 06/25/24 reviewed MRI non contrast lumbar spine from 06/27/24 reviewed Assessment/ Plan : L4-L5 anterolisthesis, L4-S1 radiculopathy Recommendation of MELANIE L4-L5 #1. Risks, benefits of procedure discussed and pt verbalized understanding. Protocol for discontinuation/ continuation of medications raymon procedure discussed. All questions answered. I have spent greater than 30 minutes on patient care today. Dr Morillo was available by phone for the evaluation of this patient. The time was used to review the medical records including relevant urine studies and Prescription history (MAPs), review of the available imaging, evaluation and examination of the patient, coordination of care with the medical staff and if applicable referring physicians, as well as creation of the medical record - Pain Location Right Lower Back Non-Pharmacological Interventions: Physical Therapy, Position/Reposition, Sitting Pharmacological Interventions: PRN Medication, Scheduled Medication PQRS Narrative: Smoking Status Former smoker Narcotic Agreement Date Signed 07/14/24 Hx Alcohol Use (MH) No Home Medications: Ambulatory Orders Atorvastatin [Lipitor] 20 mg PO HS 06/25/24 amLODIPine [Norvasc] 5 mg PO DAILY 06/25/24 methylPREDNISolone Dose Pack [Medrol Dose Pack] 4 mg PO DIRECTED 06/25/24 Acetaminophen Tab [Tylenol] 650 mg PO Q6HR PRN tab 06/27/24 Gabapentin [Neurontin] 300 mg PO TID #90 cap 06/27/24 Controlled Substance Measures - Controlled Substance Measures Is patient prescribed a controlled substance at discharge?: No
== END ==
LOC: PNWHC3 09:31
PROVIDERS: ATTEND Specialist
DX: M54.17 Radiculopathy, lumbosacral region (principal); M43.16 Spondylolisthesis, lumbar region; Z87.891 Personal history of nicotine dependence; Z88.0 Allergy status to penicillin
CPT/HCPCS: 99211

== ENCOUNTER → 2024-09-22 | Outpatient (CLI) | payer MEDICARE, BC ==
[2024-09-22 10:32] VITALS: BP 155/85; PULSE 69; RESP 16; TEMP 97.1
--- NOTE | 2024-09-22 15:39 | P.PAINPG ---
PQRS Measure Charge Sheet Comment: HISTORY OF PRESENT ILLNESS: A 74 yr old female presents today w severe acute LBP secondary to radiculopathy, spondylosis and facet arthropathy without myelopathy for evaluation s/p MELANIE L4- L5 #1. Pt states she experienced 50 % pain relief x 2 wks s/p procedure. Pt states pain level is provoked at 6 /10 in intensity, constant, localized in the R lower lumbar spine, predominantly axial, achy in character w occasional shooting pain towards the RLE. Pain is provoked by lifting, bending. Pain is alleviated by PT x 4 wks which she is currently in, physician guided stretches daily since Jul 2023, use of a cane for ambulatory assistance, medications, manual massage, repositioning and rest . Interventional procedures include MELANIE L4-L5 x1 Medications include Tyl, Ibu REVIEW OF ORGAN SYSTEMS: CONSTITUTIONAL: No fevers or chills. No recent weight loss. NEUROLOGICAL: + numbness and tingling along the distal extremities. No seizure disorders or headaches. MUSCULOSKELETAL: + pain PSYCHIATRIC: Denies current depression or suicidal thoughts. Physical Examinations : Constitutional : Cooperative , not in acute distress . Neurologic : Cranial nerve II to XII intact. No focal neurological deficits. Psychiatric : alert & oriented x 3. Matching mood & appropriate affect. Judgment & insight intact. Musculoskeletal : Cervical Spine Motor strength in the deltoid and biceps: Normal right side. Normal Left side Motor strength biceps and the wrist extensors: Normal right side . Normal left side Motor strength in the triceps muscle: Normal right side. Normal left side Deep tendon reflexes: Normal at the biceps. Normal at Brachioradialis. Normal at triceps Vertebral body tenderness to deep palpation over Cervical facet loading test: positive bilaterally Spurling test: positive bilaterally Neck distraction test: positive bila terally Benjamin sign: positive bilaterally Lumbar spine Motor strength lower extremities ,thigh and legs 5/5 Right side , 5/5 Left side Deep tendon reflexes : Normal Knee Jerk. Normal Ankle Jerk Vertebral body tenderness over L5 Otto Test positive R L4-L5 Lumbar facet Loading Test: positive Right / positive Left Range of motion of the lumbar spine Flexion 30 degrees, extension 10 degrees Straight Leg Raise test: Left/ Right positive at degrees Ernst test: positive right / positive left. Severe tenderness over the Sacroiliac joint on the Right / Left sides Gaenslen test: positive bilaterally Seated flexion test: positive bilaterally. Sacral spine : Severe tenderness over the Sacroiliac joint: right side / left side Range of motion: Flexion of the lumbar spine <60 degrees Range of motion: Extension of the lumbar spine <20 degrees Gaenslen's Test positive Ernst test: positive right side / left side Thigh Thrust Test Sacral Thrust Test Imaging: X ray lumbar spine from 06/25/24 reviewed MRI non contrast lumbar spine from 06/27/24 reviewed Assessment/ Plan : L4-L5 anterolisthesis, L4-S1 radiculopathy Recommendation of R TFESI L4-L5/ L5-S1 #2. Risks, benefits of procedure discussed and pt verbalized understanding. Protocol for discontinuation/ continuation of medications raymon procedure discussed. All questions answered. I have spent greater than 30 minutes on patient care today. Dr Morillo was available by phone for the evaluation of this patient. The time was used to review the medical records including relevant urine studies and Prescription history (MAPs), review of the available imaging, evaluation and examination of the patient, coordination of care with the medical staff and if applicable referring physicians, as well as creation of the medical record - Pain Location Bilateral Lower Back Non-Pharmacological Interventions: Heat, Physical Therapy, Position/Reposition, Sitting, Stretching Pharmacological Interventions: Epidural, PRN Medication PQRS Narrative: Smoking Status Former smoker Narcotic Agreement Date Signed 07/14/24 Hx Alcohol Use (MH) No Home Medications: Ambulatory Orders Atorvastatin [Lipitor] 20 mg PO HS 06/25/24 amLODIPine [Norvasc] 5 mg PO DAILY 06/25/24 Cholecalciferol (Vitamin D3) [Vitamin D3 (125 MCG = 5,000 IU)] 125 mcg PO DAILY 09/04/24 Ibuprofen [Motrin Ib] 200 - 400 mg PO Q6HR PRN 09/04/24 Controlled Substance Measures - Controlled Substance Measures Is patient prescribed a controlled substance at discharge?: No
== END ==
LOC: PNWHC3 09:59
PROVIDERS: ATTEND Specialist
DX: M43.16 Spondylolisthesis, lumbar region (principal); M54.17 Radiculopathy, lumbosacral region; Z87.891 Personal history of nicotine dependence; Z88.0 Allergy status to penicillin
CPT/HCPCS: 99211

== ENCOUNTER 2024-10-21 08:04 | Day surgery (SDC) | payer MEDICARE, BC ==
[2024-10-17 11:42] VITALS: BMI 33.6
[~2024-10-21 08:04] MED LIST: LACTATED RINGERS 1,000 ML IV SCH
[2024-10-21 08:20] VITALS: TEMP 97.8
[2024-10-21] MEDS ORDERED: methylPREDNISolone ACETATE 40 MG/ML 1 ML VIAL ONE (08:57)
[2024-10-21] MEDS ORDERED: IOPAMIDOL M200 10 ML VIAL ONE (08:57)
--- NOTE | 2024-10-21 09:13 | P.PCN ---
Date of Procedure: 10/21/24 Procedure(s) Performed: PREOPERATIVE DIAGNOSIS: 1-Lumbar radiculopathy . 2-lumbar foraminal stenosis 3-lumbar spondylosis with lumbar facet arthropathy without myelopathy POSTOPERATIVE DIAGNOSIS: 1-lumbar radiculopathy. 2-lumbar foraminal stenosis. 3- lumbar spondylosis with facet arthropathy without myelopathy PROCEDURE 1. Transforaminal epidural steroid injection under fluoroscopic guidance at right L4-5, and Right L5-S1 level. (Fluoroscopy images stored in the rad Dept ) 2. Lumbar epidurogram . ANESTHESIA: Local with 1% lidocaine 3 ml. EBL: Minimal PROCEDURE INDICATION: The patient with low back pain and radiculopathy symptoms unresponsive to conservative treatment. PROCEDURE DESCRIPTION / TECHNIQUE: The patient was seen and identified in the preoperative area. Risks, benefits, complications, and alternatives were discussed with the patient. The patient agreed to proceed with the procedure and signed the consent, and vital signs were stable. Patient was taken to the OR and time out was completed. The patient was placed in the prone position on procedure table and a pillow was placed under the abdomen to reduce lumbar lordosis. The lumbosacral area was prepped and draped in the usual sterile fashion. Critical pause was taken. Vital signs were closely monitored during the procedure. Using oblique fluoroscopy, the chin of the `EllenAdan dog at right L4-5 level was identified, and the skin and deeper tissues just below was localized with 1% lidocaine. Subsequently, a 22-gauge 5-inch spinal needle was advanced under a tunneled view fluoroscopic guidance just underneath the chin of the `Johny dog at the right L4-5 Under lateral fluoroscopy, the needle was then advanced to the posterior border of the interforaminal space. After negative aspiration of CSF and blood and with no paresthesias, 1 mL Isovue 200 contrast dye was injected excellent epidurogram and outlining of the nerve root Subsequently, 3 mL of block solution containing 20 mg Depo-Medrol and 2 mL of 0.9% normal saline PF was injected. Needle was removed and the same procedure was repeated at the right L5-S1 level . At the end of the procedure, skin was cleansed, and bandages were applied. COMPLICATIONS:none DISPOSITION / PLANS: The patient was placed in a supine position and transferred to the recovery area in a stable condition for observation. There was no evidence of lower extremity motor or sensory deficit after the procedure. Patient was discharged from the recovery room after meeting discharge criteria. Home discharge instructions were given to the patient by the staff. The patient was reexamined prior to discharge.
--- NOTE | 2024-10-21 09:29 | FL ---
EXAMINATION TYPE: FL guided pain mgmt statistic DATE OF EXAM: 10/21/2024 CLINICAL INDICATION: Female, 74 years old with history of TRANSFORAMINAL EPI STEROID INJECTION; PHH, pain TECHNIQUE: Fluoroscopy. COMPARISON: None. FINDINGS: Fluoroscopic guidance was provided during pain relief procedure performed by Dr. Morillo . A total of 9.5 seconds of fluoroscopic time was utilized during the procedure and one image was ac quired. Image acquired shows needle localization in the lower lumbar spine. Degeneration changes of t he visualized joints. Total DAP: [id number] mGym2 IMPRESSION: As Above. [facility], , 10/21/2024 9:26 AM
[2024-10-21 09:34] VITALS: RESP 16
[2024-10-21 09:35] VITALS: BP 126/69; PULSE 83
== END 2024-10-21 09:40 ==
LOC: ORPAIN 08:04
PROVIDERS: ATTEND Specialist
DX: M47.26 Other spondylosis with radiculopathy, lumbar region (principal); M48.061 Spinal stenosis, lumbar region without neurogenic claudication; Z88.0 Allergy status to penicillin; Z79.1 Long term (current) use of non-steroidal anti-inflammatories (NSAID)
CPT/HCPCS: 64483; 64484; Q9966; J1010

== ENCOUNTER → 2024-11-06 | Outpatient (CLI) | payer MEDICARE, BC ==
[2024-11-06 10:56] VITALS: BP 146/79; PULSE 63; RESP 17; TEMP 95.8
--- NOTE | 2024-11-06 15:24 | P.PAINPG ---
PQRS Measure Charge Sheet Comment: HISTORY OF PRESENT ILLNESS: A 74 yr old female presents today w severe acute LBP secondary to radiculopathy, spondylosis and facet arthropathy without myelopathy for evaluation s/p R TFESI L4-L5/ L5-S1 #1. Pt states she experienced 50 % pain relief x 2 wks s/p procedure. Pt states pain level is provoked at 8 /10 in intensity, constant, localized in the R lumbar spine, predominantly axial, achy in character w occasional shooting pain towards the RLE. Pain is provoked by lifting, bending. Pain is alleviated by PT x 6 wks which ended in Aug 2024, physician guided stretches daily since Jul 2023, use of a cane for ambulatory assistance, medications, topical, manual massage, repositioning and rest . Interventional procedures include MELANIE L4-L5 x1, R TFESI L4-L5/ L5-S1 x1 Medications include Tyl, Ibu, Lidocaine REVIEW OF ORGAN SYSTEMS: CONSTITUTIONAL: No fevers or chills. No recent weight loss. NEUROLOGICAL: + numbness and tingling along the distal extremities. No seizure disorders or headaches. MUSCULOSKELETAL: + pain PSYCHIATRIC: Denies current depression or suicidal thoughts. Physical Examinations : Constitutional : Cooperative , not in acute distress . Neurologic : Cranial nerve II to XII intact. No focal neurological deficits. Psychiatric : alert & oriented x 3. Matching mood & appropriate affect. Judgment & insight intact. Musculoskeletal : Cervical Spine Motor strength in the deltoid and biceps: Normal right side. Normal Left side Motor strength biceps and the wrist extensors: Normal right side . Normal left side Motor strength in the triceps muscle: Normal right side. Normal left side Deep tendon reflexes: Normal at the biceps. Normal at Brachioradialis. Normal at triceps Vertebral body tenderness to deep palpation over Cervical facet loading test: positive bilaterally Spurling test: positive bilaterally Neck distraction test: positive bilaterally Benjamin sign: positive bilaterally Lumbar spine Motor strength lower extremities ,thigh and legs 5/5 Right side , 5/5 Left side Deep tendon reflexes : Normal Knee Jerk. Normal Ankle Jerk Vertebral body tenderness over L5 Otto Test positive R L4-L5 Lumbar facet Loading Test: positive Right / positive Left Range of motion of the lumbar spine Flexion 30 degrees, extension 10 degrees Straight Leg Raise test: Left/ Right positive at degrees Ernst test: positive right / positive left. Severe tenderness over the Sacroiliac joint on the Right / Left sides Radha test: positive bilaterally Seated flexion test: positive bilaterally. Sacral spine : Severe tenderness over the Sacroiliac joint: right side / left side Range of motion: Flexion of the lumbar spine <60 degrees Range of motion: Extension of the lumbar spine <20 degrees Gaenslen's Test positive Ernst test: positive right side / left side Thigh Thrust Test Sacral Thrust Test Imaging: X ray lumbar spine from 06/25/24 reviewed MRI non contrast lumbar spine from 06/27/24 reviewed Assessment/ Plan : L4-L5 anterolisthesis, L4-S1 radiculopathy Recommendation of PT x 6 wks w focus on traction/ decompression M54.16. All questions answered. I have spent greater than 30 minutes on patient care today. Dr Morillo was available by phone for the evaluation of this patient. The time was used to review the medical records including relevant urine studies and Prescription history (MAPs), review of the available imaging, evaluation and examination of the patient, coordination of care with the medical staff and if applicable referring physicians, as well as creation of the medical record PQRS Narrative: Smoking Status Former smoker Narcotic Agreement Date Signed 07/14/24 Hx Alcohol Use (MH) No Home Medications: Ambulatory Orders Atorvastatin [Lipitor] 20 mg PO HS 06/25/24 amLODIPine [Norvasc] 5 mg PO DAILY 06/25/24 Cholecalciferol (Vitamin D3) [Vitamin D3 (125 MCG = 5,000 IU)] 125 mcg PO DAILY 09/04/24 Ibuprofen [Motrin Ib] 200 - 400 mg PO Q6HR PRN 09/04/24 Controlled Substance Measures - Controlled Substance Measures Is patient prescribed a controlled substance at discharge?: No
== END ==
LOC: PNWHC3 10:06
PROVIDERS: ATTEND Anesthesiology
DX: M47.27 Other spondylosis with radiculopathy, lumbosacral region (principal); Z88.0 Allergy status to penicillin; Z87.891 Personal history of nicotine dependence
CPT/HCPCS: 99211